=== PATIENT | female | born 1950 | race Caucasian/White ===

== ENCOUNTER 2017-03-21 09:50 | Day surgery (SDC) | payer MEDICARE, OTHER ==
[~2017-03-21] VITALS: Ht 154.9 cm; Wt 64.4 kg
[~2017-03-21 09:50] MED LIST: ACETAMINOPHEN325 M1 PO; ARMOUR THYROID120 MG PO; ASPIR-LOW81 MG PO; ASPIRIN EC325 MG PO; BENADRYL ALLERG25 MG PO; CALCIUM500 MG PO; CLARITIN10 MG PO; DHEA TABLET1 EACH PO; DIGOX125 MCG PO; DIGOX250 MCG PO; FISH OIL 1,001000 MG PO; GLUCOSAMINE CO1 EACH PO; GLUCOSAMINE1000 MG PO; IMITREX25 MG PO; LEVOTHYROXINE75 MCG PO; MAGNESIUM250 MG PO; MELATONIN3 MG PO; MILK THISTLE175 M2 PO; NIACIN500 M1 PO; POLYETHYLENE GL17 GM PO; PROBIOTIC1 EAC1 PO; TRAMADOL HCL50 MG PO; VERAPAMIL HCL120 MG PO; VITAMIN B122500 MCG PO; VITAMIN C1000 MG PO; VITAMIN D250000 UNIT PO; VITAMIN E400 UNI1 PO
[2017-03-21] MEDS ORDERED: MAPAP325 MG PO (13:52)
[2017-03-21] MEDS ORDERED: IBUPROFEN600 MG PO (13:52)
[2017-03-21] MEDS ORDERED: PERCOCET 7.5-31 EACH PO (13:55)
--- NOTE | 2017-03-21 13:55 | NUR ---
03/21/17 Linda5 Eri Willingham 1333 PT ARRIVED TO PACU, RESP EVEN AND UNLABORED. 1335 PT REPONDED TO VOICE AND DENINES PAIN AND NAUSEA.
--- NOTE | 2017-03-21 14:47 | NUR ---
ICED WATER GIVEN. FAMILY REMAINS @ BS.
--- NOTE | 2017-03-21 16:55 | NUR ---
1630 PT AMB TO BR VOIDS 400MLS. TAKING PO WELL. DENIES NEED FOR PAIN MED. WANTS TO GO HOME.
--- NOTE | 2017-03-28 12:51 | OR ---
[facility] [address], [place] [address] Signed DATE OF OPERATION: 03/21/2017 SURGEON: Trinity James MD PREOPERATIVE DIAGNOSIS: Recurrent retroperitoneal lymphoma, previously B-cell lymphoma in 2004. POSTOPERATIVE DIAGNOSIS: Recurrent retroperitoneal lymphoma, previously B-cell lymphoma in 2004. PROCEDURE: 1. Laparoscopy with lysis of adhesions. 2. Conversion to mini-laparotomy with retroperitoneal biopsies of lymphoma. SURGEON: Trinity James MD. ANESTHESIA: General endotracheal, Erica Kelly, SOCIAL SERVICES DIRECTOR and local 10 mL of 0.25% Marcaine with epinephrine. 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 She declined conventional chemotherapy that was recommended and has undergone various homeopathic approaches. She has had recurrence of abdominal pain and a large palpable mass of the retroperitoneum, which is engulfing the superior mesenteric vein and artery as well as other retroperitoneal structures. She has self-referred to Dr. Zambrano in [place], [place] and sees also Dr. See in [place], [place], anticipating chemotherapy. Given the interval of time since her original diagnosis and the evolution of more sophisticated tumor markers and with the possibility of the lymphoma morphing into a different subtype, which may materially impact on treatment options. Biopsy of the mass is once again recommended. Her primary physician, Dr. Obregon has organized for her to have a recent echocardiogram, which was largely normal. A laparoscopic approach will be attempted, though it is admitted that might not be possible given her prior intraabdominal resection adhesions and so on. The risks of bleeding, infection, need for open procedure, and so forth were all reviewed. She understands and wished to proceed. Electronically Signed By: TRINITY JAMES MD 03/28/17 1251 PATIENT NAME: SCARLETT HUNTLEY OPERATIVE REPORT DATE OF : 48 PHYSICIAN: TRINITY JAMES MD REPORT #: [id number] REPORT IS CONFIDENTIAL AND NOT TO BE RELEASED WITHOUT AUTHORIZATION [facility] [address] [place], [place] [address] Signed FINDINGS: Upon laparoscopy, she had no evidence of ascites or carcinomatosis. The liver appeared normal. Omental adhesions were adherent to the anterior abdominal wall. Laparoscopic division of the omental adhesions was accomplished and the omentum could be manipulated. Unfortunately, the small bowel beneath it was impressively guarding the retroperitoneum with dense adhesions between bowel loops precluding reasonable access to the retroperitoneum for biopsy. On that basis, a laparotomy was made extending the infraumbilical trocar site a few centimeters to allow for manipulation of the retroperitoneal contents. Ultimately, a window could be created to the retroperitoneum allowing for both core biopsies and solid incisional biopsies. I have confirmed with the pathologist postoperatively and very adequate specimen has been obtained. Notably, the biopsy cavity was marked with clips for future reference on imaging studies. DESCRIPTION OF PROCEDURE: The patient was brought to the operating room, given a general endotracheal anesthetic. A Wang catheter was placed. The abdomen was clipped and prepared with a chlorhexidine solution and draped sterilely. An infraumbilical incision was made and using a meticulous open Alessandra cannula technique, the abdomen entered. There was no sign of ascites or carcinomatosis. Pneumoperitoneum was achieved to a level of 14 mmHg of carbon dioxide gas. Intraabdominal inspection showed no sign of ascites or carcinomatosis. The liver appeared normal. There were obvious omental adhesions to the anterior abdominal wall. Two 5 mm trocars were placed, one in the superior right midclavicular line, and other in the right lower quadrant and operation then took place from the patient's right side. With an angled 30 degree scope placed in the right lower quadrant, lysis of omental adhesions in the anterior abdominal wall could be accomplished. This allowed for two hand manipulation of the omentum covering the intraabdominal viscera. Once the omentum was freed and manipulated out of the way, the small bowel loops could be better identified. They had a fair number of interloop adhesions, none of which were excessively mobile from the retroperitoneum itself. Various angles and approaches were attempted to get to the retroperitoneum for biopsy, but it simply was not possible. On that basis, the trocars were removed under direct visualization showing no sign of bleeding and plans made for conversion to mini-laparotomy. The infraumbilical incision was extended a few centimeters. The abdomen was entered. Manipulation of small bowel loops was undertaken. Some lysis of adhesions was undertaken, but a window was found superiorly that allowed for true visualization of the bulky retroperitoneal mass through small bowel mesenteric folds. The fat of the mesenteric fold and retroperitoneal fat was gently exposing the retroperitoneal mass. Core biopsies were taken with 14-gauge Bioptigen. Subsequent to that, wedge biopsies with a 15 blade were undertaken. Ultimately, cup biopsies from mediastinoscopy set undertaken. Minimal bleeding was noted. It was secured with electrocautery and some Rani. Once hemostasis was assured, plans were made for closure. The clips were applied to the biopsy cavity so as to macario it for future reference if necessary. Electronically Signed By: TRINITY JAMES MD 03/28/17 1251 PATIENT NAME: YUKO,SCARLETT RAO OPERATIVE REPORT DATE OF : 48 PHYSICIAN: TRINITY JAMES MD REPORT #: [id number] REPORT IS CONFIDENTIAL AND NOT TO BE RELEASED WITHOUT AUTHORIZATION [address] [place], [place] [address] Signed There was no untoward bleeding elsewhere and the peritoneum was reapproximated with running 2-0 Vicryl. The midline fascia was reapproximated with interrupted 0 Vicryl suture. A 10 mL of 0.25% Marcaine with epinephrine was injected locally. Skin was closed with running subcuticular 3-0 Vicryl. Steri-Strips were applied to that wound as well as the trocar sites, which were closed with interrupted 3-0 Vicryl and Mepilex silver sponge dressing and an OpSite was applied to the umbilical area. The patient was ultimately extubated and transferred to the recovery room in good condition having suffered no complications. Sponge, needle, and instruments counts reported correct x3. MD BARBI Argueta/JUAN /[id number] cc: MD Mike Rivero MD Russell Harrison, M.D. Electronically Signed By: TRINITY JAMES MD 03/28/17 1251 PATIENT NAME: SCARLETT HUNTLEY ANN OPERATIVE REPORT DATE OF : 48 PHYSICIAN: TRINITY JAMES MD REPORT #: [id number] REPORT IS CONFIDENTIAL AND NOT TO BE RELEASED WITHOUT AUTHORIZATION
== END 2017-03-21 16:40 | disposition home or self-care (01) ==
LOC: DS 09:50
PROVIDERS: Surgery
PROC: 0WBH0ZX Excision of Retroperitoneum, Open Approach, Diagnostic (ICD-10-PCS; principal; 2017-03-21 12:00)
DX: C83.33 Diffuse large B-cell lymphoma, intra-abdominal lymph nodes (principal); E03.9 Hypothyroidism, unspecified; M79.7 Fibromyalgia; G43.909 Migraine, unspecified, not intractable, without status migrainosus; M19.90 Unspecified osteoarthritis, unspecified site; Z88.5 Allergy status to narcotic agent; Z88.8 Allergy status to other drugs, medicaments and biological substances; Z90.710 Acquired absence of both cervix and uterus; Z98.890 Other specified postprocedural states; Z79.899 Other long term (current) drug therapy
CPT/HCPCS: 00840; 88305; J0690; J1100; J1644; J2250; J2405; J2704; J3010; J7120